=== PATIENT | female | born 1955 | race Caucasian/White ===

== ENCOUNTER → 2024-07-08 | Outpatient (REF) | payer MEDICARE | LOC: MRI 08:52 | PROVIDERS: ATTEND Family Medicine | DX: M17.12 Unilateral primary osteoarthritis, left knee (principal) ==

== ENCOUNTER → 2025-01-03 | Day surgery (SDC) | payer MEDICARE ==
[2025-01-02 10:43] LABS: BASOPHILS % 0.6 % (0.0-1.0); EOSINOPHILS % 1.7 % (0.0-6.0); LYMPHOCYTES % 35.8 % (18.0-39.1); MONOCYTES % 6.0 % (4.4-11.3); NEUTROPHILS % 54.8 % (38.7-80.0); RED CELL DISTRIBUTION WIDTH 12.6 % (11.7-14.4)
[2025-01-02 10:57] LABS: EST GLOMERULAR FILTRATION RATE 93.0 ML/MIN (>=60)
[~2025-01-03] MED LIST: ACETAMINOPHEN 1000 MG/100 ML 100 ML IV ONE; ACETAMINOPHEN 1000 MG/100 ML IV PRN; AMLODIPINE-VAL1 EACH PO; ASPIRIN 325 MG TAB PO SCH; ASPIRIN81 MG PO; BUPIVACAINE 0.5%/EPI 30 ML SDV INJ ONE; CELECOXIB 100 MG CAP PO SCH; D3-5000125 MCG; DOCUSATE SODIUM 100 MG CAP PO PRN; FENTANYL CITRATE/PF 100MCG/2 ML INJ ONE; HYDROCODONE/APAP 5MG-325MG TAB PO PRN; HYDROCODONE/APAP 7.5MG-325MG 1 EA TAB PO PRN; LIDOCAINE HCL 2% LOCAL INJ 5 ML SDV VIAL INJ ONE; MIDAZOLAM HCL 2 MG/2 ML VIAL ONE; MULTI-VITAMIN1 EACH PO; ONDANSETRON HCL INJ 2MG/ML 2ML 2 MG/ML VIAL ONE; PHENTERMINE H37.5 MG PO; PROPOFOL IV EMULSION 10 MG/ML 20 ML VIAL ONE; PROZAC20 MG PO; ROPIVACAINE/EPI/CLONIDINE/KET 50 ML SYRINGE INJ ONE; SEVOFLURANE INHAL SOLN 250 ML PEN BTL ONE; SODIUM CHLORIDE 0.9% 1000ML 1,000 ML IV SCH; SODIUM CHLORIDE 0.9% 200 ML ONE; TYLENOL PM EXS1 EACH; VENTOLIN HFA18 GM INH; VITAMIN C1000 MG PO
[2025-01-03] MEDS: DEXAMETHASONE SOD PHOS 10 MG/1 ML VIAL ONE (06:08)
[2025-01-03] MEDS: GABAPENTIN 300 MG CAP ONE (06:08)
[2025-01-03] MEDS: CEFAZOLIN SODIUM 2 GM ONE (06:09)
[2025-01-03] MEDS: LACTATED RINGER'S 1,000 ML ONE (06:09)
[2025-01-03] MEDS: CELECOXIB 200 MG CAP ONE (06:10)
[2025-01-03] MEDS: MEPERIDINE HCL INJ 25 MG/ML VIAL ONE (09:04)
[2025-01-03] MEDS: FENTANYL CITRATE/PF 100MCG/2 ML INJ ONE (09:47)
[2025-01-03] MEDS: ONDANSETRON HCL INJ 2MG/ML 2ML 2 MG/ML VIAL IV PRN (09:54)
[2025-01-03 10:05] VITALS: TEMP 97.6
[2025-01-03] MEDS: METOCLOPRAMIDE HCL 10 MG/2ML VIAL ONE (10:15)
[2025-01-03] MEDS: SCOPOLAMINE 1 MG PATCH ONE (11:55)
[2025-01-03 12:15] VITALS: BP 116/58; PULSE 85; RESP 15; O2SAT 95
== END | disposition home health service (06) ==
LOC: OR 05:33
PROVIDERS: ATTEND Specialist
DX: M17.12 Unilateral primary osteoarthritis, left knee (principal); M25.762 Osteophyte, left knee; I10 Essential (primary) hypertension; E78.5 Hyperlipidemia, unspecified; J44.9 Chronic obstructive pulmonary disease, unspecified; R73.03 Prediabetes; F41.9 Anxiety disorder, unspecified; F32.A Depression, unspecified; F17.200 Nicotine dependence, unspecified, uncomplicated; M54.2 Cervicalgia; M54.9 Dorsalgia, unspecified; I45.10 Unspecified right bundle-branch block; Z88.6 Allergy status to analgesic agent; Z88.0 Allergy status to penicillin; Z88.2 Allergy status to sulfonamides; Z01.810 Encounter for preprocedural cardiovascular examination; Z01.812 Encounter for preprocedural laboratory examination; Z01.818 Encounter for other preprocedural examination; Z79.82 Long term (current) use of aspirin; Z79.899 Other long term (current) drug therapy; Z82.61 Family history of arthritis
CPT/HCPCS: 27447; 36415; 71046; 73560; 80048; 85025; 86850; 86900; 93005; 97116; 97161; C1713; C1776 ×3; J0131; J1100; J2003; J2175; J2250; J2405; J2704; J2765; J3010; J7050; J7121